=== PATIENT | male | born 1955 | race Caucasian/White ===

== ENCOUNTER 2023-12-01 03:03 | Inpatient (IN) ==
[2023-12-01] MEDS: KETOROLAC TROMETHAMINE 15 MG/ML VIAL IV ONE ×2 (03:31→08:49)
[2023-12-01] MEDS: ONDANSETRON INJ 2 MG/ML 2 ML VIAL IV STA (03:33)
[2023-12-01] MEDS: MoRPHine SULFATE 4 MG/ML 1 ML CARP\\VIAL IV PRN (03:34)
[2023-12-01 03:37] LABS: Basophils # (auto) 0.04 K/uL (0.00-0.20); Basophils % (auto) 0.5 %; Eosinophils # (auto) 0.07 K/uL (0.00-0.50); Eosinophils % (auto) 0.9 %; Hematocrit (blood only) 47.5 % (42.0-52.0); Hemoglobin 16.1 g/dl (14.0-18.0); Immature Granulocytes # (auto) 0.03 K/uL (0.01-0.20); Immature Granulocytes % (auto) 0.4 %; Lymphocytes # (auto) 2.42 K/uL (1.20-3.40); Lymphocytes % (auto) 30.6 %; Mean Corpuscular Hemoglobin 30.5 pg (25.0-34.0); Mean Corpuscular Hgb Conc 33.9 g/dL (32.0-36.0); Mean Platelet Volume 10.2 fL (9.4-12.4); Monocytes % (auto) 10.1 %; Neutrophils # (auto) 4.54 K/uL (1.40-6.50); Neutrophils % (auto) 57.5 %; Platelet Count 250 K/uL (130-400); RDW Standard Deviation 42.7 fL (36.4-46.3); Red Blood Count 5.28 M/uL (4.70-6.10)
[2023-12-01 03:56] LABS: Albumin Globulin Ratio 1.4 (0.9-2); Albumin Level 4.2 gm/dl (3.4-5.0); BUN Creatinine Ratio 23.7 (10-20); Bilirubin,Total 0.9 mg/dl (0.2-1.0); Calcium 9.7 mg/dl (8.6-10.3); Creatinine Clr Calc Pharmacy 69.9 ml/min; Est GFR (African American) 77.2 ml/min; Est GFR (Non-African American) 66.6 ml/min; Globulin 3.1 gm/dl (2.5-4.0); Potassium 4.3 mmol/L (3.5-5.1); Total Protein 7.3 gm/dl (6.0-8.3)
[2023-12-01 04:16] LABS: Appearance Urine Clear (Clear); Bilirubin Urine Negative (Negative); Blood Urine Negative (Negative); Color Urine Yellow; Glucose Urine UA Negative (Negative); Ketones Urine Negative (Negative); Leukocyte Esterase Urine Negative (Negative); Nitrite Urine Negative (Negative); Protein Urine Negative (Negative); Specific Gravity Urine 1.022 (1.000-1.030); Urobilinogen Urine Negative (Negative); pH Urine 5.5 (4.5-7.5)
--- NOTE | 2023-12-01 04:25 | Emergency Department Note ---
Impression & Plan Acute right flank pain, Ureterolithiasis ED Provider Note NAME: LILY RODGERS AGE: 68 SEX: Male INFORMANT: Patient ED PROVIDER(S): Pio Benavidez MD CHIEF COMPLAINT: Right flank pain PLAN: Disposition: Admitted Outpatient prescription management: none Referral: None MEDICAL DECISION MAKING: Patient presented because of acute right flank pain. He was evaluated. He was very uncomfortable. Blood work, imaging, and medications ordered. He was given IV Toradol, morphine, and Zofran for symptom control. Patient was sent to the CT imaging. Patient does have a right ureteral stone on imaging. Patient still symptomatic and with a lot of pain. Given dilaudid and monitored. Still without relief. Discussed need for admission and patient in agreement. Consultation was made with Dr. Escobedo of the [facility] service. Patient was evaluated in the ER for further management. Care/management discussed with: manager behavioral Level of care consideration(s): After review of the information above and other included data, I feel the patient requires escalation of care to admission. Triage Nursing notes: reviewed and agree them. Vital Signs: reviewed and remarkable for hypertension Additional History obtained from: none Chronic Medical/Social Conditions affecting care: none Prior/ Outside/ External records reviewed: Prior CT imaging reviewed from the EMR. Patient was noted to have bilateral nephrolithiasis. Differential Diagnosis: Renal colic, UTI, appendicitis, diverticulitis, mesenteric ischemia, aortic pathology, infections, inflammatory bowel disease, PUD, biliary pathology, as well as other pathologies. Diagnostics, independently interpreted by me: ECG: none Cardiac Monitoring: Cardiac monitoring ordered by me: The patient was placed on continuous cardiac monitoring and observed. It revealed a normal sinus rhythm at 62 beats per minute without ectopy or evidence of dysrhythmia. Medical decision rules: none Imaging studies: CT reveals right ureterolithiasis HPI: 68 year old Male arrives for evaluation of right flank pain. This started acutely at 1 AM and is sharp and severe. The patient also notes the following associated symptoms, nausea. The patient has found no relieving factors. Current pain is rated as 10/10. Pt denies LOC, headache, fevers, chills, diaphoresis, visual changes, neck pain, chest pain, breathing difficulties, vomiting, abdominal pain, melena, hematochezia, urinary symptoms, numbness, weakness, lymphadenopathy, rash, or other complaints. PAST MEDICAL HISTORY: See Below, kidney stone PAST SURGICAL HISTORY: See Below, SOCIAL HISTORY: See Below, HOME MEDICATIONS: See Below ALLERGIES: See Below VITALS: See Below PHYSICAL EXAMINATION: GENERAL: Awake, alert, uncomfortable-appearing, in no distress HENT: Normocephalic, atraumatic. Oropharynx unremarkable. EYES: Normal conjunctiva. Sclera non-icteric. NECK: Inspection normal. Non-tender. Supple. No nuchal rigidity. FROM. No masses. RESPIRATORY: Clear to auscultation. No wheezes. No rales. Normal respiratory effort. CARDIAC: Normal rate. Normal rhythm. No murmurs. No rubs. Extremities warm and well perfused. Pulses equal. No JVD. GI: Soft, non-distended. Mild left upper tenderness to palpation. No rebound or guarding. No masses. RECTAL: Deferred. MUSCULOSKELETAL: Atraumatic. Chest examination reveals no tenderness. The back is symmetrical on inspection without obvious abnormality. There is right CVA tenderness to palpation. No joint edema. LOWER EXTREMITIES: Calves are equal size bilaterally and non-tender. No edema. No discoloration. NEURO: Normal sensorium. No sensory or motor deficits noted. SKIN: No rash or jaundice noted. PROCEDURES: none CRITICAL CARE: none OBSERVATION NOTE: none Past Med/Surg History Problem List Hydronephrosis of right kidney Ureterolithiasis (Acute) Acute right flank pain (Acute) Medical History BPH (benign prostatic hyperplasia) HTN (hypertension) T2DM (type 2 diabetes mellitus) Kidney stone Surgical History Hx of tonsillectomy Family History Other Diabetes Stroke Social History (Updated 12/01/23 @ 09:08 by Idalia Linder PA-C) Smoking Status: Never smoker Do You Dip or Chew Tobacco: No; Hx Alcohol Use: No Hx Substance Use: No Preferred Language: Telugu Registered Occupational Therapist Required: No Beliefs That Will Affect Care: None marital status: Current Living Situation: Spouse Feels Safe at Home: Yes Assistive Devices: Glasses Allergies Allergies Allergy/AdvReac Type Severity Reaction Status Date / Time No Known Allergies Allergy Unverified 12/01/23 12:40 Home Meds Home Medications Medication Instructions Recorded Confirmed atorvastatin 20 mg tablet 10 mg PO DAILY 12/01/23 12/01/23 lisinopril 10 mg tablet 10 mg PO DAILY 12/01/23 12/01/23 psyllium husk 3.4 gram/5.4 gram 2 tsp PO TID 12/01/23 12/01/23 oral powder (Metamucil) semaglutide 0.25 mg or 0.5 mg (2 0.5 mg subcut Q7D 12/01/23 12/01/23 mg/3 mL) subcutaneous pen injector (Ozempic) Results & Data (ED) Vital Signs Vital Signs - 24 hr 12/01/23 03:06 12/01/23 03:23 12/01/23 04:12 Temperature 36.6 C Temperature Source Temporal Artery Scan Pulse Rate 62 60 Pulse Rate [Left] Pulse Rate from SpO2 Sensor Pulse Rhythm [Left] Pulse Strength [Left] Respiratory Rate 20 Respiratory Effort / Characteristics Respiratory Depth Respiratory Pattern Blood Pressure 180/105 H Blood Pressure [Right Arm] Blood Pressure Mean 130 Blood Pressure Mean [Right Arm] Blood Pressure Position [Right Arm] Pulse Oximetry 99 96 Oxygen Delivery Method Room Air Room Air Sepsis Recent Fever Within 48 Hours No Sepsis New/Unexplained Change in Mental Status N/A Sepsis Action Taken by Nursing No Action Required 12/01/23 04:15 12/01/23 05:00 12/01/23 05:00 Temperature Temperature Source Pulse Rate 68 58 L Pulse Rate [Left] Pulse Rate from SpO2 Sensor 68 60 Pulse Rhythm [Left] Pulse Strength [Left] Respiratory Rate 22 7 L Respiratory Effort / Characteristics Respiratory Depth Respiratory Pattern Blood Pressure 126/65 Blood Pressure [Right Arm] Blood Pressure Mean 92 Blood Pressure Mean [Right Arm] Blood Pressure Position [Right Arm] Pulse Oximetry 95 93 Oxygen Delivery Method Sepsis Recent Fever Within 48 Hours Sepsis New/Unexplained Change in Mental Status Sepsis Action Taken by Nursing 12/01/23 07:00 12/01/23 07:00 12/01/23 07:30 Temperature Temperature Source Pulse Rate 51 L 56 L Pulse Rate [Left] Pulse Rate from SpO2 Sensor 51 L 53 L Pulse Rhythm [Left] Pulse Strength [Left] Respiratory Rate 15 15 Respiratory Effort / Characteristics Respiratory Depth Respiratory Pattern Blood Pressure 131/72 Blood Pressure [Right Arm] Blood Pressure Mean 92 Blood Pressure Mean [Right Arm] Blood Pressure Position [Right Arm] Pulse Oximetry 95 93 Oxygen Delivery Method Sepsis Recent Fever Within 48 Hours Sepsis New/Unexplained Change in Mental Status Sepsis Action Taken by Nursing 12/01/23 07:30 12/01/23 07:32 12/01/23 08:00 Temperature Temperature Source Pulse Rate 51 L Pulse Rate [Left] 59 L Pulse Rate from SpO2 Sensor 51 L Pulse Rhythm [Left] Regular Pulse Strength [Left] Normal Respiratory Rate 17 12 Respiratory Effort / Characteristics Non-Labored Respiratory Depth Normal Respiratory Pattern Regular Blood Pressure 140/79 Blood Pressure [Right Arm] 140/79 Blood Pressure Mean 103 Blood Pressure Mean [Right Arm] 99 Blood Pressure Position [Right Arm] Sitting Pulse Oximetry 97 93 Oxygen Delivery Method Room Air Sepsis Recent Fever Within 48 Hours Sepsis New/Unexplained Change in Mental Status Sepsis Action Taken by Nursing 12/01/23 08:00 Temperature Temperature Source Pulse Rate Pulse Rate [Left] Pulse Rate from SpO2 Sensor Pulse Rhythm [Left] Pulse Strength [Left] Respiratory Rate Respiratory Effort / Characteristics Respiratory Depth Respiratory Pattern Blood Pressure 144/83 H Blood Pressure [Right Arm] Blood Pressure Mean 98 Blood Pressure Mean [Right Arm] Blood Pressure Position [Right Arm] Pulse Oximetry Oxygen Delivery Method Sepsis Recent Fever Within 48 Hours Sepsis New/Unexplained Change in Mental Status Sepsis Action Taken by Nursing Laboratory Data 12/01/23 03:20 12/01/23 03:20 Lab Results 12/01/23 12/01/23 Range/Units 03:20 03:35 WBC 7.90 (4.8-10.8) K/ul RBC 5.28 (4.70-6.10) M/uL Hgb 16.1 (14.0-18.0) g/dl Hct 47.5 (42.0-52.0) % MCV 90.0 (80.0-100.0) fL MCH 30.5 (25.0-34.0) pg MCHC 33.9 (32.0-36.0) g/dL RDW Std Deviation 42.7 (36.4-46.3) fL RDW Coeff of [place] 13.0 (11.5-14.5) % Plt Count 250 (130-400) K/uL MPV 10.2 (9.4-12.4) fL Immature Gran % (Auto) 0.4 % Neut % (Auto) 57.5 % Lymph % (Auto) 30.6 % [place] % (Auto) 10.1 % Eos % (Auto) 0.9 % Baso % (Auto) 0.5 % Neut # (Auto) 4.54 (1.40-6.50) K/uL Lymph # (Auto) 2.42 (1.20-3.40) K/uL [place] # (Auto) 0.80 H (0.11-0.59) K/uL Eos # (Auto) 0.07 (0.00-0.50) K/uL Baso # (Auto) 0.04 (0.00-0.20) K/uL Immature Gran # (Auto) 0.03 (0.01-0.20) K/uL Sodium 136 (136-145) mmol/L Potassium 4.3 (3.5-5.1) mmol/L Chloride 104 (98-107) mmol/L Carbon Dioxide 25 (21-32) mmol/L Anion Gap 7 (3-11) BUN 27 H (6-23) mg/dl Creatinine 1.14 (0.6-1.4) mg/dl Est Cr Clr Drug Dosing 69.9 ml/min Est GFR ( Amer) 77.2 ml/min Est GFR (Non-Af Amer) 66.6 ml/min BUN/Creatinine Ratio 23.7 H (10-20) Glucose 119 H (70-99(Fasting)) mg/dl Calcium 9.7 (8.6-10.3) mg/dl Total Bilirubin 0.9 (0.2-1.0) mg/dl AST 19 (13-39) U/L ALT 19 (7-52) U/L Alkaline Phosphatase 54 (34-104) U/L Total Protein 7.3 (6.0-8.3) gm/dl Albumin 4.2 (3.4-5.0) gm/dl Globulin 3.1 (2.5-4.0) gm/dl Albumin/Globulin Ratio 1.4 (0.9-2) Lipase 16 (11-82) U/L Urine Color Yellow Urine Appearance Clear (Clear) Urine pH 5.5 (4.5-7.5) Ur Specific [place] 1.022 (1.000-1.030) Urine Protein Negative (Negative) Urine Glucose (UA) Negative (Negative) Urine Ketones Negative (Negative) Urine Blood Negative (Negative) Urine Nitrite Negative (Negative) Urine Bilirubin Negative (Negative) Urine Urobilinogen Negative (Negative) Ur Leukocyte Esterase Negative (Negative) Administered Medications Acetaminophen (Acetaminophen 325 Mg Tab) 650 mg PO Q4H PRN PRN Reason: pain/fever Stop: 12/31/23 10:18 Last Admin: 12/01/23 18:11 Dose: 650 mg Documented By: EDIN Sodium Chloride (Nss) 1,000 mls @ 75 mls/hr IV .[id number] [facility] Stop: 12/31/23 08:14 Last Admin: 12/01/23 15:56 Dose: 150 mls/hr Documented By: Infusion: 12/01/23 15:49 Dose: Infused Documented By: Admin: 12/01/23 08:40 Dose: 150 mls/hr Documented By: LAZARO Oxycodone HCl (Oxycodone Hcl Ir 5 Mg Tab (Immediate Release)) 5 mg PO Q3H PRN PRN Reason: Pain, moderate Stop: 12/15/23 16:14 Last Admin: 12/01/23 18:08 Dose: 5 mg Documented By: EDIN Psyllium Hydrophilic Mucilloid (Psyllium Or Guar Gum Fiber 4gm Packet) 8 gm PO TID [facility] Stop: 12/31/23 13:59 Last Admin: 12/01/23 17:21 Dose: Not Given Documented By: EDIN Discontinued Medications Diatrizoate Meglumine (Diatrizoate Meglumine 30% 100ml Vial) 100 ml INSTIL ONCE ONE Stop: 12/01/23 13:26 Last Admin: 12/01/23 13:26 Dose: 7 ml Documented By: [id number] Fentanyl Citrate (Fentanyl Citrate Pf 100 Mcg/2 Ml Vial) 25 mcg IV NOW ONE Stop: 12/01/23 09:31 Last Admin: 12/01/23 16:16 Dose: Not Given Documented By: EDIN Hydromorphone HCl (Hydromorphone Inj 0.5 Mg/0.5 Ml Syr) 0.5 mg IV NOW STA Stop: 12/01/23 07:26 Last Admin: 12/01/23 07:33 Dose: 0.5 mg Documented By: NAHUM Cefazolin Sodium (Ancef 2000mg) 2,000 mg in 15 mls @ 3.75 mls/min IV PREOP HIRAM; Protocol Stop: 12/01/23 16:00 Last Admin: 12/01/23 13:05 Dose: 3.75 mls/min Documented By: NORAH Ketorolac Tromethamine (Ketorolac Tromethamine 15 Mg/Ml Vial) 10 mg IV NOW ONE Stop: 12/01/23 03:28 Last Admin: 12/01/23 03:31 Dose: 10 mg Documented By: JOHN Ketorolac Tromethamine (Ketorolac Tromethamine 15 Mg/Ml Vial) 15 mg IV NOW ONE Stop: 12/01/23 08:36 Last Admin: 12/01/23 08:49 Dose: 15 mg Documented By: LAZARO Morphine Sulfate (Morphine Sulfate 4 Mg/Ml 1 Ml [place]\Vial) 4 mg IV Q15M PRN PRN Reason: Pain Stop: 12/15/23 03:26 Last Admin: 12/01/23 05:03 Dose: 4 mg Documented By: Admin: 12/01/23 04:07 Dose: 4 mg Documented By: Admin: 12/01/23 03:34 Dose: 4 mg Documented By: JOHN Ondansetron HCl (Ondansetron Inj 2 Mg/Ml 2 Ml Vial) 4 mg IV NOW STA Stop: 12/01/23 03:28 Last Admin: 12/01/23 03:33 Dose: 4 mg Documented By: JOHN Imaging Data Radiologist's Impression: Retrograde Pyelogram 12/01/23 00:00 FL retrograde includes kub CLINICAL HISTORY: RT CYSTO STENTright-sided cystourethrogram COMPARISON STUDY: CT 12/01/2023 FLUOROSCOPY TIME: 12.3 seconds FLUOROSCOPY IMAGES: 1 EXPOSURE DOSE: 3.57 mGy FINDINGS: Proximal portion of a right ureteral stent appears to be in satisfactory positioning. The distal portion of the stent was not imaged. IMPRESSION: Fluoroscopic assistance as above. ACT 112: Negative or not required by law. Electronically signed by: Avtar Wilkins M.D. 12/01/2023 1:40 PM Abdomen/Pelvis CT 12/01/23 03:23 Exam(s): CT ABDOMEN + PELVIS Without Contrast EXAM: CT Abdomen and Pelvis Without Intravenous Contrast CLINICAL HISTORY: Reason for exam: right flank pain. TECHNIQUE: Axial computed tomography images of the abdomen and pelvis without intravenous contrast. CTDI is 24.36 mGy and DLP is 1255.37 mGy-cm. Automated exposure control was utilized for the study. A dose lowering technique was utilized adhering to the principles of ALARA. COMPARISON: No relevant prior studies available. FINDINGS: Lung bases: Unremarkable. No mass. No consolidation. ABDOMEN: Liver: There is right hepatic cyst measuring 5.8 cm in diameter. Gallbladder and bile ducts: Unremarkable. No calcified stones. No ductal dilation. Pancreas: Unremarkable. No ductal dilation. Spleen: Unremarkable. No splenomegaly. Adrenals: Unremarkable. No mass. Kidneys and ureters: There is right-sided hydroureteronephrosis due to the presence of a right distal ureteric calculus measuring 4.5 mm in diameter. There are bilateral renal stones identified, the largest 1 of which is located on the left side and measures 6 mm in diameter. 3 cm left renal cortical cyst is seen. Stomach and bowel: Sigmoid colonic diverticulosis. No obstruction. No mucosal thickening. PELVIS: Appendix: Normal appendix located in the midline. Bladder: Unremarkable. No stones. Reproductive: Unremarkable as visualized. ABDOMEN and PELVIS: Intraperitoneal space: Unremarkable. No free air. No significant fluid collection. Bones/joints: No acute fracture. No dislocation. Moderately advanced multilevel degenerative disc disease changes seen in the lumbar spine. Posterior disc osteophyte complex seen at L1/2, L2/3 and L3/4 junction. Vasculature: Unremarkable. No abdominal aortic aneurysm. Lymph nodes: Unremarkable. No enlarged lymph nodes. IMPRESSION: Right hydroureteronephrosis due to 4.5 mm right distal ureteric calculus Electronically signed by: David Aguilar MD 12/01/23 06:59 AM Discharge Plan Visit Data Chief Complaint: Kidney Stone Stated Complaint: KIDNEY STONE ED Provider: Pio Benavidez Discharge Problem: Acute right flank pain, Ureterolithiasis Patient Disposition: Admitted As Inpatient Discharge Instructions Interventions: ED Discharge Assessment Last Done: 12/01/23 12:15
--- NOTE | 2023-12-01 07:00 | CT Scan Report ---
Exam(s): CT ABDOMEN + PELVIS Without Contrast EXAM: CT Abdomen and Pelvis Without Intravenous Contrast CLINICAL HISTORY: Reason for exam: right flank pain. TECHNIQUE: Axial computed tomography images of the abdomen and pelvis without intravenous contrast. CTDI is 24.36 mGy and DLP is 1255.37 mGy-cm. Automated exposure control was utilized for the study. A dose lowering technique was utilized adhering to the principles of ALARA. COMPARISON: No relevant prior studies available. FINDINGS: Lung bases: Unremarkable. No mass. No consolidation. ABDOMEN: Liver: There is right hepatic cyst measuring 5.8 cm in diameter. Gallbladder and bile ducts: Unremarkable. No calcified stones. No ductal dilation. Pancreas: Unremarkable. No ductal dilation. Spleen: Unremarkable. No splenomegaly. Adrenals: Unremarkable. No mass. Kidneys and ureters: There is right-sided hydroureteronephrosis due to the presence of a right distal ureteric calculus measuring 4.5 mm in diameter. There are bilateral renal stones identified, the largest 1 of which is located on the left side and measures 6 mm in diameter. 3 cm left renal cortical cyst is seen. Stomach and bowel: Sigmoid colonic diverticulosis. No obstruction. No mucosal thickening. PELVIS: Appendix: Normal appendix located in the midline. Bladder: Unremarkable. No stones. Reproductive: Unremarkable as visualized. ABDOMEN and PELVIS: Intraperitoneal space: Unremarkable. No free air. No significant fluid collection. Bones/joints: No acute fracture. No dislocation. Moderately advanced multilevel degenerative disc disease changes seen in the lumbar spine. Posterior disc osteophyte complex seen at L1/2, L2/3 and L3/4 junction. Vasculature: Unremarkable. No abdominal aortic aneurysm. Lymph nodes: Unremarkable. No enlarged lymph nodes. IMPRESSION: Right hydroureteronephrosis due to 4.5 mm right distal ureteric calculus Electronically signed by: David Aguilar MD 12/01/23 06:59 AM
[2023-12-01] MEDS: HYDROmorphone INJ 0.5 MG/0.5 ML SYR IV STA (07:33)
[2023-12-01] MEDS ORDERED: HYDROmorphone INJ 0.5 MG/0.5 ML SYR IV PRN ×2 (07:58→10:19)
[2023-12-01] MEDS: SODIUM CHLORIDE 0.9% 1,000 ML IV SCH (08:40)
--- NOTE | 2023-12-01 09:16 | History & Physical Report ---
<Statement entered by Smith Ritchie, DO - 12/01/23 16:18> I have seen and examined the patient and have discussed the case with the provider above. I have reviewed the advanced practitioner's documentation, and I agree with, and take responsibility for that plan of care. Spent 15 minutes in coordination of care Patient seen and examined on the unit after he had returned from the operating room. Status post cystoscopy with right ureteral stent placement. Pain is significantly improved. Tolerated procedure well. Decrease IV fluids Oral pain medications Advance diet Anticipate discharge within 24 hours Date of Service December 01, 2023 Assessment & Plan (1) Acute right flank pain: (2) Ureterolithiasis: (3) Hydronephrosis of right kidney: (4) T2DM (type 2 diabetes mellitus): (5) HTN (hypertension): Plan This is a 68-year-old male who has a significant past medical history of T2DM, HTN and BPH who presents to ED secondary to acute onset right-sided flank pain that started at 1 AM. Acute right flank pain Ureterolithiasis Hydronephrosis of right kidney Admit to medical -- CT abdomen pelvis reveal right hydroureteronephrosis due to a 4.5 mm right distal ureter calculus Urinalysis benign, renal function stable Consult urology IVF at 150 cc/h Pain control with IV Toradol for moderate pain, IV Dilaudid for severe pain keep NPO until seen by urology T2DM on ozempic last a1c 5.8 previously had been 7.5 diabetic diet when able to tolerate PO HTN controlled continue lisinopril HLD chronic, stable on statin at OP DVT ppx: Encourage ambulation, if prolonged hospitalization would recommend chemical prophylaxis FULL CODE PCP: Dr. Carey Dispo: admit to med/surg Pt was seen and examined in collaboration with Dr. Ritchie, please see addendum A total of 65 minutes was spent coordinating, documenting, and providing care for this patient excluding time spent in the performance of separately billed services. This included personally viewing all current laboratories and imaging studies, medication reconciliation, outpatient chart review, and discussion with specialists. History of Present Illness Chief Complaint: R flank pain since 0100. Primary Care Provider: Keith Carey MD This is a 68-year-old male who has a significant past medical history of T2DM, HTN and BPH who presents to ED secondary to acute onset right-sided flank pain that started at 1 AM. Pain came on abruptly. It was located in his right flank and right lower back. Symptoms did not radiate to his anterior abdomen. It was associated with nausea. Nothing seem to make the pain better or worse. He denied any associated fever, chills, sweats, vomiting, dysuria, increased urgency with urination or hematuria. He does report increased frequency with urination, but this is chronic for him. His is at bedside who also helps elicit history. He does report that he has an appointment with [facility] urology but is not until April. He reports a history of kidney stones in which he thinks he passed 1 approximately 3 months ago. He had a renal and bladder ultrasound done as outpatient in September which did reveal bilateral nephrolithiasis. He has never required ED evaluation or hospitalization for prior stones. In ED CT abdomen pelvis revealed a 4.5 mm right distal ureter stone with hydroureteronephrosis. His urinalysis was negative for infection. His renal function was stable. He complains of significant pain. Currently he is an 8 out of 10 pain. Discussed with nurse at bedside and pt did become hypoxic after administration of IV dilaudid. Allergies Allergy/AdvReac Type Severity Reaction Status Date / Time No Known Allergies Allergy Unverified 12/01/23 07:37 Home Medications Medication Instructions Recorded Confirmed Type atorvastatin 20 mg tablet 10 mg PO DAILY 12/01/23 12/01/23 History lisinopril 10 mg tablet 10 mg PO DAILY 12/01/23 12/01/23 History psyllium husk 3.4 gram/5.4 gram 2 tsp PO TID 12/01/23 12/01/23 History oral powder (Metamucil) semaglutide 0.25 mg or 0.5 mg (2 0.5 mg subcut Q7D 12/01/23 12/01/23 History mg/3 mL) subcutaneous pen injector (Ozempic) Past Med/Surg History Problem List (Updated 12/01/23 @ 09:10 by Idalia Linder PA-C) Hydronephrosis of right kidney Ureterolithiasis (Acute) Acute right flank pain (Acute) Medical History BPH (benign prostatic hyperplasia) HTN (hypertension) T2DM (type 2 diabetes mellitus) Kidney stone Surgical History Hx of tonsillectomy Family History Other Diabetes Stroke Social History (Updated 12/01/23 @ 09:08 by Idalia Linder PA-C) Smoking Status: Never smoker Hx Alcohol Use: No Hx Substance Use: No Preferred Language: Korean marital status: Current Living Situation: Spouse Feels Safe at Home: Yes Review of Systems Review of Systems: All systems reviewed & are unremarkable except as noted in HPI & below Physical Exam Physical Exam: Constitutional: WD/WN, vitals as above, appears in pain, sitting up in bed, pleasant, conversing easily Head: Normocephalic, Atraumatic Eyes: PERRL, conjunctivae normal, anicteric sclerae ENMT: external ear and nose normal, oropharynx normal Neck: trachea midline, no thyromegaly normal visual inspection Respiratory: normal respiratory effort, lungs clear to auscultation, no wheeze, rales, rhonchi. Normal insp/exp effort, no accessory muscle use Cardiovascular: RRR, no murmur, no edema Vessels: no JVD or carotid bruit Chest: normal inspection of chest Abdomen: normal bowel sounds, soft, nontender, no hepatosplenomegaly Musculoskeletal: no cyanosis or clubbing, extremities motor strength 5/5 Skin: no rashes, warm and dry normal turgor Neurologic: PERRL, EOMI, accommodation nl, no face palsy, no dysarthria CN's II-XI intact bilaterally and moves all extremities Psychiatric: A+Ox3, euthymic affect Lymphatic: no cervical or axillary lymphadenopathy : deferred Results & Data Results & Data Vital Signs (Past 12 Hours) Vital Signs Temp Pulse Pulse Resp BP BP Pulse Ox 12/01/23 08:25 50 L 12/01/23 08:00 144/83 H 12/01/23 08:00 51 L 12 93 12/01/23 07:32 59 L 17 140/79 97 12/01/23 07:30 140/79 12/01/23 07:30 56 L 15 93 12/01/23 07:00 51 L 15 95 12/01/23 07:00 131/72 12/01/23 05:00 58 L 7 L 93 12/01/23 05:00 126/65 12/01/23 04:15 68 22 95 12/01/23 04:12 60 12/01/23 03:23 96 12/01/23 03:06 36.6 C 62 20 180/105 H 99 O2 Del Method 12/01/23 08:25 12/01/23 08:00 12/01/23 08:00 12/01/23 07:32 Room Air 12/01/23 07:30 12/01/23 07:30 12/01/23 07:00 12/01/23 07:00 12/01/23 05:00 12/01/23 05:00 12/01/23 04:15 12/01/23 04:12 12/01/23 03:23 Room Air 12/01/23 03:06 Room Air Diagnostic Findings Abdomen/Pelvis CT 12/01/23 03:23 Exam(s): CT ABDOMEN + PELVIS Without Contrast EXAM: CT Abdomen and Pelvis Without Intravenous Contrast CLINICAL HISTORY: Reason for exam: right flank pain. TECHNIQUE: Axial computed tomography images of the abdomen and pelvis without intravenous contrast. CTDI is 24.36 mGy and DLP is 1255.37 mGy-cm. Automated exposure control was utilized for the study. A dose lowering technique was utilized adhering to the principles of ALARA. COMPARISON: No relevant prior studies available. FINDINGS: Lung bases: Unremarkable. No mass. No consolidation. ABDOMEN: Liver: There is right hepatic cyst measuring 5.8 cm in diameter. Gallbladder and bile ducts: Unremarkable. No calcified stones. No ductal dilation. Pancreas: Unremarkable. No ductal dilation. Spleen: Unremarkable. No splenomegaly. Adrenals: Unremarkable. No mass. Kidneys and ureters: There is right-sided hydroureteronephrosis due to the presence of a right distal ureteric calculus measuring 4.5 mm in diameter. There are bilateral renal stones identified, the largest 1 of which is located on the left side and measures 6 mm in diameter. 3 cm left renal cortical cyst is seen. Stomach and bowel: Sigmoid colonic diverticulosis. No obstruction. No mucosal thickening. PELVIS: Appendix: Normal appendix located in the midline. Bladder: Unremarkable. No stones. Reproductive: Unremarkable as visualized. ABDOMEN and PELVIS: Intraperitoneal space: Unremarkable. No free air. No significant fluid collection. Bones/joints: No acute fracture. No dislocation. Moderately advanced multilevel degenerative disc disease changes seen in the lumbar spine. Posterior disc osteophyte complex seen at L1/2, L2/3 and L3/4 junction. Vasculature: Unremarkable. No abdominal aortic aneurysm. Lymph nodes: Unremarkable. No enlarged lymph nodes. IMPRESSION: Right hydroureteronephrosis due to 4.5 mm right distal ureteric calculus Electronically signed by: David Aguilar MD 12/01/23 06:59 AM Medications Administered Medication List Sodium Chloride (Nss) 1,000 mls @ 150 mls/hr IV .Q6H40M HIRAM Stop: 12/31/23 08:14 Last Admin: 12/01/23 08:40 Dose: 150 mls/hr Documented By: LAZARO Morphine Sulfate (Morphine Sulfate 4 Mg/Ml 1 Ml Carp\Vial) 4 mg IV Q15M PRN PRN Reason: Pain Stop: 12/15/23 03:26 Last Admin: 12/01/23 05:03 Dose: 4 mg Documented By: Admin: 12/01/23 04:07 Dose: 4 mg Documented By: Admin: 12/01/23 03:34 Dose: 4 mg Documented By: JOHN Discontinued Medications Hydromorphone HCl (Hydromorphone Inj 0.5 Mg/0.5 Ml Syr) 0.5 mg IV NOW STA Stop: 12/01/23 07:26 Last Admin: 12/01/23 07:33 Dose: 0.5 mg Documented By: NAHUM Ketorolac Tromethamine (Ketorolac Tromethamine 15 Mg/Ml Vial) 10 mg IV NOW ONE Stop: 12/01/23 03:28 Last Admin: 12/01/23 03:31 Dose: 10 mg Documented By: JOHN Ketorolac Tromethamine (Ketorolac Tromethamine 15 Mg/Ml Vial) 15 mg IV NOW ONE Stop: 12/01/23 08:36 Last Admin: 12/01/23 08:49 Dose: 15 mg Documented By: LAZARO Ondansetron HCl (Ondansetron Inj 2 Mg/Ml 2 Ml Vial) 4 mg IV NOW STA Stop: 12/01/23 03:28 Last Admin: 12/01/23 03:33 Dose: 4 mg Documented By: JOHN COVID-19 Results Results COVID-19 Adm Lab Results: RBC 5.28 M/uL (4.70-6.10) 12/01/23 WBC 7.90 K/ul (4.8-10.8) 12/01/23 Hgb 16.1 g/dl (14.0-18.0) 12/01/23 Hct 47.5 % (42.0-52.0) 12/01/23 Plt Count 250 K/uL (130-400) 12/01/23 Neutrophils (%) (Auto) 57.5 % 12/01/23 Lymphocytes (%) (Auto) 30.6 % 12/01/23 Monocytes # (Auto) 0.80 K/uL (0.11-0.59) H 12/01/23 Eosinophils # (Auto) 0.07 K/uL (0.00-0.50) 12/01/23 Immature Granulocyte % (Auto) 0.4 % 12/01/23 Neutrophils # (Auto) 4.54 K/uL (1.40-6.50) 12/01/23 Lymphocytes # (Auto) 2.42 K/uL (1.20-3.40) 12/01/23 Monocytes # (Auto) 0.80 K/uL (0.11-0.59) H 12/01/23 Eosinophils # (Auto) 0.07 K/uL (0.00-0.50) 12/01/23 Basophils # (Auto) 0.04 K/uL (0.00-0.20) 12/01/23 Na 136 mmol/L (136-145) 12/01/23 K 4.3 mmol/L (3.5-5.1) 12/01/23 Cl 104 mmol/L (98-107) 12/01/23 CO2 25 mmol/L (21-32) 12/01/23 Anion Gap 7 (3-11) 12/01/23 BUN 27 mg/dl (6-23) H 12/01/23 Creatinine 1.14 mg/dl (0.6-1.4) 12/01/23 BUN/Creatinine Ratio 23.7 (10-20) H 12/01/23 Glucose Level 119 mg/dl (70-99(Fasting)) H 12/01/23 Ca 9.7 mg/dl (8.6-10.3) 12/01/23 Total Bilirubin 0.9 mg/dl (0.2-1.0) 12/01/23 AST/SGOT 19 U/L (13-39) 12/01/23 ALT/SGPT 19 U/L (7-52) 12/01/23 Alkaline Phosphatase 54 U/L (34-104) 12/01/23 Total Protein 7.3 gm/dl (6.0-8.3) 12/01/23 Albumin 4.2 gm/dl (3.4-5.0) 12/01/23 Globulin 3.1 gm/dl (2.5-4.0) 12/01/23 Albumin/Globulin Ratio 1.4 (0.9-2) 12/01/23 Code Status & VTE Plan Code Status FULL CODE VTE Prophylaxis Plan VTE Prophylaxis will be ordered: No
[2023-12-01] MEDS ORDERED: ONDANSETRON INJ 2 MG/ML 2 ML VIAL IV PRN ×2 (10:19→12:54)
[2023-12-01] MEDS ORDERED: POLYETHYLENE (MIRALAX) 17 GM PACK PO PRN (10:19)
[2023-12-01] MEDS ORDERED: MAGNESIUM HYDROXIDE SUSP 30 ML UDC PO PRN (10:19)
[2023-12-01] MEDS ORDERED: ALUMINUM/MAGNESIUM SUSP 30 ML UDC PO PRN (10:19)
--- NOTE | 2023-12-01 11:30 | Urology Consultation ---
Date of Consultation December 01, 2023 Assessment & Plan (1) Hydronephrosis of right kidney: (2) Ureterolithiasis: (3) Acute right flank pain: Plan We reviewed his CT findings, specifically the 4.5 mm obstructing distal right ureteral stone. We discussed options for acute stone management. Discussed cystoscopy and stent placement. Ureteral stents were discussed as well as postoperative issues and pain management. He is aware a second procedure may be needed for stone treatment. Also discussed option for trial of passage with max expulsion therapy and symptom control. Stone passage rates given size and location were reviewed. Risks and benefits of each were discussed. All questions were answered. Given his severe right flank pain, patient prefers to proceed with stent placement. Will plan to proceed to OR today for cystoscopy, right retrograde pyelogram, right ureteral stent placement. Risks and benefits to be reviewed with patient by Dr. Skinner. OR notified. Will cover with IV Ancef preoperatively. Keep NPO. Urology to follow. Supervising Physician Co-Signing Physician Notes I have discussed Mr. De Los Santos's case with TAMELA Samuels and agree with the above documentation. Due to ongoing right-sided flank pain from his ureteral stone, we will plan for cystoscopy, right retrograde pyelogram, right ureteral stent placement. We reviewed risks and benefits of the surgery. He expressed understanding and would like to proceed -Solitario Skinner MD. History of Present Illness Attending Physician: Smith Ritchie DO History of Present Illness 68 year old male with a PMHx including T2DM, HTN and BPH who presented to ED secondary to acute onset right-sided flank pain with associated nausea. On arrival he was afebrile and hemodynamically stable. Labs show no leukocytosis and normal renal function. Urinalysis without signs of infection or blood. CT abdomen pelvis demonstrated a 4.5 mm right distal ureteral stone with hydronephrosis. ED course includes ketorolac, Dilaudid, morphine, IVF, Zofran, fentanyl. Patient did become hypoxic after administration of IV Dilaudid. He was admitted to medicine service for pain management. Patient seen at bedside in the ED. Awake, resting in bed on arrival. No acute distress. at bedside. He reports having a spoonful of peanut butter around 2 AM but otherwise nothing to eat or drink. Pain is currently well- controlled. Denies fever, chills, nausea, vomiting. Denies hematuria and dysu angel. He reports a history of kidney stones with spontaneous passage. He does not currently follow with a urologist but is scheduled to see [facility] urology this fall. Allergies Allergy/AdvReac Type Severity Reaction Status Date / Time No Known Allergies Allergy Unverified 12/01/23 12:40 Home Medications Medication Instructions Recorded Confirmed Type atorvastatin 20 mg tablet 10 mg PO DAILY 12/01/23 12/01/23 History lisinopril 10 mg tablet 10 mg PO DAILY 12/01/23 12/01/23 History psyllium husk 3.4 gram/5.4 gram 2 tsp PO TID 12/01/23 12/01/23 History oral powder (Metamucil) semaglutide 0.25 mg or 0.5 mg (2 0.5 mg subcut Q7D 12/01/23 12/01/23 History mg/3 mL) subcutaneous pen injector (Ozempic) Patient History Medical History BPH (benign prostatic hyperplasia) HTN (hypertension) T2DM (type 2 diabetes mellitus) Kidney stone Surgical History Hx of tonsillectomy Family History Other Diabetes Stroke Social History (Updated 12/01/23 @ 09:08 by Idalia Linder PA-C) Smoking Status: Never smoker Hx Alcohol Use: No Hx Substance Use: No Preferred Language: Singaporean marital status: Current Living Situation: Spouse Feels Safe at Home: Yes Review of Systems Review of Systems: All systems reviewed & are unremarkable except as noted in HPI & below Physical Exam Constitutional: no acute distress Respiratory: no respiratory distress and no labored breathing Musculoskeletal: Head/Neck/Chest: normocephalic Skin: No visible rashes or lesions to exposed skin areas Neurologic: moves all extremities and awake Psychiatric: A+Ox3, euthymic affect Results & Data Vital Signs (Past 12 Hours) Vital Signs Temp Pulse Pulse Resp BP BP Pulse Ox 12/01/23 10:06 20 97 12/01/23 09:15 20 96 12/01/23 09:00 58 L 20 147/80 H 95 12/01/23 08:25 50 L 12/01/23 08:00 144/83 H 12/01/23 08:00 51 L 12 93 12/01/23 07:32 59 L 17 140/79 97 12/01/23 07:30 140/79 12/01/23 07:30 56 L 15 93 12/01/23 07:00 51 L 15 95 12/01/23 07:00 131/72 12/01/23 05:00 58 L 7 L 93 12/01/23 05:00 126/65 12/01/23 04:15 68 22 95 12/01/23 04:12 60 12/01/23 03:23 96 12/01/23 03:06 36.6 C 62 20 180/105 H 99 O2 Del Method O2 Flow Rate 12/01/23 10:06 12/01/23 09:15 12/01/23 09:00 Nasal Cannula 1 12/01/23 08:25 12/01/23 08:00 12/01/23 08:00 12/01/23 07:32 Room Air 12/01/23 07:30 12/01/23 07:30 12/01/23 07:00 12/01/23 07:00 12/01/23 05:00 12/01/23 05:00 12/01/23 04:15 12/01/23 04:12 12/01/23 03:23 Room Air 12/01/23 03:06 Room Air PG Care Time/CCT Total # of Minutes Spent Total Time Spent with Patient: Total time spent is greater than 50% in coordination of care (as documented) at patient's floor/unit and/or counseling patient: Coding Level of Care Code 57161 INT INP/OBS CARE 2/55MIN Diagnoses Hydronephrosis of right kidney N13.30 Ureterolithiasis N20.1 Acute right flank pain R10.9
[2023-12-01] MEDS ORDERED: fentaNYL citrate PF 100 MCG/2 ML VIAL ONE (12:18)
[2023-12-01] MEDS ORDERED: MIDAZOLAM HCL 1 MG/ML 2ML VIAL ONE (12:18)
[2023-12-01] MEDS ORDERED: ONDANSETRON INJ 2 MG/ML 2 ML VIAL ONE (12:23)
[2023-12-01] MEDS ORDERED: KETOROLAC 30 MG/ML VIAL ONE (12:23)
[2023-12-01] MEDS ORDERED: PROPOFOL IV EMULSION 10 MG/ML 20 ML VIAL IV ONE (12:23)
[2023-12-01] MEDS ORDERED: LIDOCAINE 2% 2 ML VIAL/AMP(20MG/ML) INFIL ONE (12:23)
--- NOTE | 2023-12-01 12:53 | Anesthesiology Consultation ---
Date of Service December 01, 2023 Assessment & Plan Chart Review Chart Review: Acceptable Risk for Surgery and Patient NOT seen in Pre Admission Testing Consults Requested none ASA [id number] Proposed Anesthesia Anesthesia Type: MAC Risk / Benefits Reviewed With: PT / POA / Parent / Guardian, Accepts Plan and Informed Consent Obtained History Surgery Operation Date: 12/01/23 09:50 Proposed Procedures p Cystoscopy Retrograde Pyelogram Stent Right - Solitario Skinner MD Height/Weight Height: 5 ft 7 in Weight: 94.8 kg Allergies Allergy/AdvReac Type Severity Reaction Status Date / Time No Known Allergies Allergy Unverified 12/01/23 12:40 Medications Home Medications Medication Instructions Recorded Confirmed Last Taken atorvastatin 20 mg tablet 10 mg PO DAILY 12/01/23 12/01/23 Unknown lisinopril 10 mg tablet 10 mg PO DAILY 12/01/23 12/01/23 Unknown psyllium husk 3.4 gram/5.4 gram 2 tsp PO TID 12/01/23 12/01/23 Unknown oral powder (Metamucil) semaglutide 0.25 mg or 0.5 mg (2 0.5 mg subcut Q7D 12/01/23 12/01/23 Unknown mg/3 mL) subcutaneous pen injector (Ozempic) Active Medications Generic Name Dose Route Start Last Admin Trade Name Freq PRN Reason Stop Dose Admin Sodium Chloride 1,000 mls @ 150 mls/hr 12/01/23 08:15 12/01/23 08:40 Nss IV 12/31/23 08:14 150 mls/hr .Q6H40M HIRAM Administration NPO Date Last Intake of Fluids: 12/01/23 Time Last Intake of Fluids: 08:45 Last Intake of Fluids Comment: sip water Date Last Intake of Solids: 12/01/23 Time Last Intake of Solids: 01:00 Past Medical History Medical History BPH (benign prostatic hyperplasia) HTN (hypertension) T2DM (type 2 diabetes mellitus) Kidney stone HLD OBESE Right Hydronephrosis Exercise / Class Metabolic Activity II 4-5 Yardwork/Stairs/Walk up hill Past Family History Family History Other Diabetes Stroke Past Surgical History Surgical History Hx of tonsillectomy Past Anesthesia History No Hx of Anesthesia Complications and No Family Hx of Anesthesia Complications History of PONV No Hx of PONV and No Hx of Motion Sickness Social History Smoking Status: Never smoker Hx Alcohol Use: No Hx Substance Use: No Physical Exam Vital Signs Last Vital Signs Temp 36.6 C 12/01/23 03:06 Pulse 50 L 12/01/23 12:00 Resp 12 12/01/23 12:00 BP 131/80 12/01/23 12:00 Pulse Ox 94 12/01/23 12:00 O2 Del Method Nasal Cannula 12/01/23 09:00 O2 Flow Rate 1 12/01/23 09:00 Constitutional + obese; no acute distress ENMT Mouth: + dentition abnormality and + poor dentition Thyromental Distance: < 3.5 Finger Breadths Mallampati Class: III Neck normal visual inspection, trachea midline and + facial hair; neck extension not limited Respiratory normal respiratory effort Auscultation: lungs clear to auscultation bilaterally and + diminished lung sounds Cardiovascular Rate/Rhythm: regular rate and regular rhythm Heart Sounds: no murmur Vessels: no carotid bruit Musculoskeletal Spine: normal cervical ROM and no pain with cervical ROM Extremities: extremities normal to inspection; full ROM of extremities Neurologic moves all extremities Motor/Sensory: no sensory deficit Psychiatric Orientation: alert and oriented x 3 Testing Laboratory Results 12/01/23 03:20 12/01/23 03:20 Urine Color Yellow 12/01/23 03:35 Urine Appearance Clear (Clear) 12/01/23 03:35 Urine pH 5.5 (4.5-7.5) 12/01/23 03:35 Ur Specific [place] 1.022 (1.000-1.030) 12/01/23 03:35 Urine Protein Negative (Negative) 12/01/23 03:35 Urine Glucose (UA) Negative (Negative) 12/01/23 03:35 Urine Ketones Negative (Negative) 12/01/23 03:35 Urine Nitrite Negative (Negative) 12/01/23 03:35 Ur Leukocyte Esterase Negative (Negative) 12/01/23 03:35 12/01/23 12/01/23 12:47 10:36 POC Glucose 102 H 127 H Electrocardiogram Date: 12/01/23 Findings: + SB @ (@ 54)
[2023-12-01] MEDS ORDERED: NALOXONE HCL 0.4 MG/1 ML VIAL/CARP IV PRN (12:54)
[2023-12-01] MEDS ORDERED: fentaNYL citrate PF 100 MCG/2 ML VIAL IV PRN (12:54)
[2023-12-01] MEDS ORDERED: ePHEDrine sulfate 50 MG/ML AMP IV PRN (12:54)
[2023-12-01] MEDS ORDERED: ATROPINE SULFATE 0.1 MG/ML 10ML SYR IV PRN (12:54)
[2023-12-01] MEDS ORDERED: FLUMAZENIL 0.1 MG/1 ML 10 ML VIAL IV PRN (12:54)
[2023-12-01] MEDS ORDERED: PROMETHAZINE HCL 6.25 MG in SODIUM CHLORIDE 0.9% 50 ML IV PRN (12:54)
--- NOTE | 2023-12-01 12:58 | Communication Note ---
Date of Service: December 01, 2023 Pt last had semaglutide injection 11/26/2023
[2023-12-01] MEDS: ceFAZolin 2000MG 2,000 MG/15 ML SYR IV SCH (13:05)
[2023-12-01] MEDS: DIATRIZOATE MEGLUMINE 30% 100ML VIAL INSTIL ONE (13:26)
--- NOTE | 2023-12-01 13:31 | Operative Report ---
PG Post Operative Report Pre & Post Diagnosis Operation Date: 12/01/23 09:50 Preoperative diagnosis: Right ureteral stone Postoperative diagnosis: Right ureteral stone I identified the patient and participated in the time-out.: Yes Procedure Operation Date: 12/01/23 09:50 Cystoscopy, right retrograde pyelogram, right ureteral stent placement Surgeon Solitario Skinner MD [employer] None Estimated Blood Loss 0 Findings Consistent with Post-Op Diagnosis Specimens None Drains 6 [place] by 26 cm double-J ureteral stent in the right ureter Anesthesia Type MAC Complications none Disposition Accompanied Patient To Recovery: Yes Disposition: Recovery Room Indications This is a 68-year-old male recently seen in the emergency department with right- sided flank pain, found to have a right ureteral stone. He is being brought to the OR for a right ureteral stent placement Description of Procedure The patient was identified in the holding area and informed consent was confirmed. He was marked on the right side, then was taken to the operating room where anesthesia was initiated. He was placed in the dorsal lithotomy position with all pressure points appropriately padded. He was prepped and draped in the usual sterile fashion and a preoperative timeout was performed. A well-lubricated cystoscope was inserted per urethra and panendoscopy was performed. There were a couple thin circumferential bands of early stricture formation in the pendulous urethra.. The prostate was mildly enlarged. His bladder appeared grossly normal with no tumors or stones appreciated. Ureteral orifices were in orthotopic position bilaterally. A 5 Brune[place] open-ended catheter was inserted and used to intubate the right ureteral orifice. A retrograde pyelogram was performed using Cystografin. The distal ureter was normal in course and caliber. The proximal ureter was notable for some hydronephrosis. A 0.038 inch zip wire was advanced up to the kidney under fluoroscopic guidance. Over the wire, a 6 Brune[place] x 26 cm double-J ureteral stent was advanced. When the wire was removed, there was a good curl in the kidney under fluoroscopic guidance. A curl was visualized in the bladder with the cystoscope. At this point the bladder was drained and all instrumentation was removed. The patient was then awakened from anesthesia and was brought to the PACU in st able condition. I attest to the content of the Intraoperative Record and any orders documented therein. Any exceptions are noted below.
--- NOTE | 2023-12-01 13:41 | Fluoroscopy Report ---
FL retrograde includes kub CLINICAL HISTORY: RT CYSTO STENTright-sided cystourethrogram COMPARISON STUDY: CT 12/01/2023 FLUOROSCOPY TIME: 12.3 seconds FLUOROSCOPY IMAGES: 1 EXPOSURE DOSE: 3.57 mGy FINDINGS: Proximal portion of a right ureteral stent appears to be in satisfactory positioning. The d istal portion of the stent was not imaged. IMPRESSION: Fluoroscopic assistance as above. ACT 112: Negative or not required by law. Electronically signed by: Avtar Wilkins M.D. 12/01/2023 1:40 PM
--- NOTE | 2023-12-01 14:02 | Anesthesiology Progress Note ---
Date of Service December 01, 2023 Anesthesia Post Procedure Vital Signs Vital Signs: Temp Pulse Pulse Pulse Resp BP BP 12/01/23 13:50 36.4 C L 62 18 132/74 12/01/23 13:40 53 L 12 119/76 12/01/23 13:35 36.0 C L 59 L 10 L 134/71 12/01/23 12:44 36.6 C 52 L 20 131/75 12/01/23 12:00 131/80 12/01/23 12:00 50 L 12 12/01/23 11:18 50 L 15 12/01/23 10:35 136/85 12/01/23 10:06 20 12/01/23 09:15 20 12/01/23 09:00 58 L 20 12/01/23 08:25 50 L 12/01/23 08:00 144/83 H 12/01/23 08:00 51 L 12 12/01/23 07:32 59 L 17 12/01/23 07:30 140/79 12/01/23 07:30 56 L 15 12/01/23 07:00 51 L 15 12/01/23 07:00 131/72 12/01/23 05:00 58 L 7 L 12/01/23 05:00 126/65 12/01/23 04:15 68 22 12/01/23 04:12 60 12/01/23 03:23 12/01/23 03:06 36.6 C 62 20 180/105 H BP Pulse Ox O2 Del Method O2 Flow Rate 12/01/23 13:50 100 Room Air 12/01/23 13:40 100 Oxymask 6 12/01/23 13:35 99 Oxymask 6 12/01/23 12:44 100 Room Air 12/01/23 12:00 12/01/23 12:00 94 12/01/23 11:18 94 12/01/23 10:35 12/01/23 10:06 97 12/01/23 09:15 96 12/01/23 09:00 147/80 H 95 Nasal Cannula 1 12/01/23 08:25 12/01/23 08:00 12/01/23 08:00 93 12/01/23 07:32 140/79 97 Room Air 12/01/23 07:30 12/01/23 07:30 93 12/01/23 07:00 95 12/01/23 07:00 12/01/23 05:00 93 12/01/23 05:00 12/01/23 04:15 95 12/01/23 04:12 12/01/23 03:23 96 Room Air 12/01/23 03:06 99 Room Air Pain Intensity Right Flank: Pain Intensity: 10 Transfer of Care Handoff Completed per policy Notes Mental Status: alert / awake / arousable Patient Amnestic to Procedure: Yes Nausea / Vomiting: adequately controlled Pain: adequately controlled Airway Patency, RR, SpO2: stable & adequate BP & HR: stable & adequate Hydration State: stable & adequate Anesthetic Complications: no major complications apparent
[2023-12-01] MEDS ORDERED: oxyCODONE HCL IR 5 MG TAB (IMMEDIATE RELEASE) PO PRN (16:15)
[2023-12-01] MEDS: fentaNYL citrate PF 100 MCG/2 ML VIAL IV ONE (16:16)
--- NOTE | 2023-12-01 17:20 | Electrocardiogram Report ---
Test Reason : Blood Pressure : / mmHG Vent. Rate : 054 BPM Atrial Rate : 054 BPM P-R Int : 168 ms QRS Dur : 092 ms QT Int : 454 ms P-R-T Axes : 048 040 030 degrees QTc Int : 430 ms Sinus bradycardia Otherwise normal ECG When compared with ECG of 29-DEC-2015 16:19, No significant change was found Confirmed by Mandeep Martines ([id number]) on 12/01/2023 5:20:42 PM Referred By: Keith Carey Confirmed By:Obinna Martines
[2023-12-01] MEDS: PSYLLIUM or GUAR GUM FIBER 4GM PACKET PO SCH (17:21)
[2023-12-01] MEDS: oxyCODONE HCL IR 5 MG TAB (IMMEDIATE RELEASE) PO PRN (18:05)
[2023-12-01] MEDS: ACETAMINOPHEN 325 MG TAB PO PRN (18:11)
[2023-12-01] MEDS: TAMSULOSIN HCL 0.4 MG CAP PO SCH (20:08)
[2023-12-01] MEDS: KETOROLAC TROMETHAMINE 15 MG/ML VIAL IV PRN (20:08)
[2023-12-01] MEDS: PHENAZOPYRIDINE HCL 100 MG TAB PO PRN (22:44)
--- OUTSIDE RECORDS SUMMARY | 2023-12-02 00:53 | External Medical Summary | Summary of Care ---
Author Name Unknown Organization [facility] Address [address] [place] [address] Phone [phone] Care Team Providers Care Bank Runner Name Role Phone Keith Carey MD Primary Care Provider + Reason for Referral * Evaluate & Treat - Unlimited Visits (Within 30 days (routine)) - Pending Review Specialty Diagnoses / Procedures Referred By Laxmi cat Referred To Contact Urology Diagnoses Bilateral renal stones Courtney Abdalla CRNP [address] [place] [address] Referral ID Status Reason Start Date Expiration Date Visits Requested Visits Authorized [id number] Pending Review Specialty Services Required 10/10/[phone] Question Answer Referral Priority Within 30 days (routine) [facility] be scheduled[facility] What is the patient being referred for? Kidney Stone/Calculi Has Imaging been done? Yes * Evaluate & Treat - Unlimited Visits (Within 30 days (routine)) - Pending Review Specialty Diagnoses / Procedures Referred By Laxmi cat Referred To Contact Dietitian / Nutrition Services Diagnoses HTN, goal below 130/80 Courtney Abdalla CRNP [address] [place] [address] Referral ID Status Reason Start Date Expiration Date Visits Requested Visits Authorized [id number] Pending Review Specialty Services Required 10/10/[phone] Question Answer Referral Priority Within 30 days (routine) Where should this appointment be scheduled? [facility] What condition is the patient being seen for? All other conditions Other: Pre-Diabetes/ Hyperinsulemia Is this for 67 Forward? No Comments Medical Nutrition Therapy Reason for Visit * Reason Comments Re-Check 6 MONTH RETURN. WANT S GOUT MED REFILL. PLANTAR WART FREEZE TREATMENT. Encounter Details Date Type Department Care Team (Late st Contact Info) Description 10/10/2023 7:40 AM EDT Office Visit Family [facility] [address] [place] [address] Courtney Abdalla CRNP [address] [place] [id number] Type 2 diabetes mellitus with hemoglobin A1c goal of less than 8.0% ([facility])*; Gouty arthritis of great toe; HTN, goal below 130/80; Plantar wart of left foot; Bilateral renal stones; Renal cyst, left Allergies No known active allergiesdocumented as of this encounter (statuses as of 10/10/2023) Medications Medication Sig Dispensed Refills Start Date End Date Status Betamethasone Dipropionate Aug 0.05 % External Cream (Diprolene AF) Apply topically to affected area 2 times a day. To affected area. ear 15 g 5 06/28/2021 Active Sildenafil Citrate 100 MG Oral Tablet (Viagra)Indication s:Erectile dysfunction due to diseases classified elsewhere 06/22-1/2 tab 1-3 hours before intercourse 30 Tablet 5 06/29/2022 Active Atorvastatin Calcium 20 MG Oral Tablet (Lipitor)Indicatio ns:Type 2 diabetes mellitus with hemoglobin A1c goal of less than 7.0% (HCC) Take 1 Tablet by mouth in the morning. 90 Tablet 3 12/30/2022 Active Additional Information Patient taking differently:20 mg Oral Daily(AM),Currently taking 0.5 a tablet, Reported on 04/07/2023 amLODIPine Besylate 5 MG Oral Tablet (Norvasc) Take 1 Tablet by mouth in the morning. 30 Tablet 5 04/07/2023 Active Additional Information Patient not taking.Reported on 10/10/2023 Ozempic (0.25 or 0.5 MG/DOSE) 2 MG/3ML Solution Pen-injector (Semaglutide(0.25 or 0.5MG/DOS))Indicat ions:Type 2 diabetes mellitus with hemoglobin A1c goal of less than 8.0% ([facility]) Inject 0.5 mg under the skin once a week. 9 mL 1 07/27/2023 Active Lisinopril 10 MG Oral Tablet (Prinivil) Take 1 Tablet by mouth in the morning. 0 Active Colchicine 0.6 MG Oral Tablet 2 tab at start of gout flare, 1 tab 1hour later then stop. 9 Tablet 1 10/10/2023 Active Colchicine 0.6 MG Oral Tablet 2 tab at start of gout flare, 1 tab 1hour later then stop. 9 Tablet 1 06/29/2022 Discontinue d(Refill) documented as of this encounter (statuses as of 10/10/2023) Active Problems Problem Noted Date Diagnosed Date Plantar wart of left foot 10/10/2023 Nephrolithiasis 09/19/2023 Renal cyst, left 09/19/2023 Overview: 09/[address] [facility] [address] 3cm r/o solid w/US Obesity, Class II, BMI 35-39.9, isolated (see ac tual BMI) 06/28/2021 Type 2 diabetes mellitus wit h hemoglobin A1c goal of less than 8.0% 06/28/2021 Gouty arthritis of great toe 10/07/2016 HTN, goal below 130/80 02/14/2016 Overview: Since around 1995 Primary osteoarthritis of knee 02/14/2016 Erectile dysfunction due to diseases classified elsewhere 02/14/2016 BPH with obstruction/lower urinary tract symptom s documented as of this encounter (statuses as of 10/10/2023) Resolved Problems Problem Noted Date Diagnosed Date Resolved Date Elevated hemoglobin 06/05/2019 06/28/19 22 Trauma 05/31/2017 06/28/2021 Skin mass 05/30/2016 12/23/2016 Mass on back 05/30/2016 12/23/2016 Prediabetes 05/14/2016 06/28/2021 Arthritis of knee, right 03/14/201603/2022 Obesity 03/14/2016 06/28/2021 Well adult exam 02/14/2016 10/10/2023 Overview: 09/[address] [facility] [address] 3cm r/o solid w/US 06/06 FOB WNL joaquín 1y 10/03-didn't sched colonoscopy 03/03 DEXA WNL Gluc 107, LDL 116, HDL 39, TG 126 TC 181 01/30 CT sinuses WNL. Left lat semicirc canal vertibule dysplasia ?hearing loss? 2005 stress test WNL [place] Inv T III on EKG documented as of this encounter (statuses as of 10/10/2023) Immunizations Name Administration Dates Next Due COVID-19, mRNA, LNP-s, PF, B ooster, 100mcg/0.5mg (Moderna) 07/02/2021 Covid-19 Ad26, Single Dose (Pablo/J&J) 021 TDAP (age 10 and older)(Boostrix) 06/04/2018 documented as of this encounter Social History Tobacco Use Types Packs/Day Years Used Date Smoking Tobacco: Never Smokeless Tobacco: Never Alcohol Use Standard Drinks/Week Comments Yes 0 (1 standard drink = 0.6 oz pur e alcohol) very rare. PHQ-2 Answer Date Recorded PHQ Adult Total Score 0 12/30/2022 Hunger Vital Sign Answer Date Recorded Within the past 12 months, y ou worried that your food would run out before you got the money to buy more. Never true 12/31/19 23 Within the past 12 months, t he food you bought just didn't last and you didn't have money to get more. Never true 12/30/2022 Sex and Gender Information Value Date Recorded Sex Assigned at Male 06/10/2020 11:46 AM EST Gender Identity Male 06/10/2020 11:46 AM EST Sexual Orientation Straight 06/10/2020 11 :46 AM EST Job Start Date Occupation Industry Not on file Not on file Not on file documented as of this encounter Last Filed Vital Signs Vital Sign Reading Time Taken Comments Blood Pressure 130/78 10/10/2023 7:21 AM EDT Pulse 69 10/10/2023 7:21 AM EDT Temperature - - Respiratory Rate - - Oxygen Saturation - - Inhaled Oxygen Concentration - - Weight 96.2 kg (212 lb 1 oz) 10/10/2023 7:21 AM EDT Height - - Body Mass Index 33.21 07/27/2023 8:23 AM EST documented in this encounter Progress Notes * Courtney AbdallalleTAMELA - 10/10/2023 7:40 AM EDT Images from the original note were not included. Follow up Family Medicine Visit CC: Chief Complaint Patient presents with Re-Check 6 MONTH RETURN. WANTS GOUT MED REFILL. PLANTAR WART FREEZE TREATMENT. History of Present Illness: Bird De Los Santos is a 68 year old male presenting for follow up of left plantar wart Dm-back on ozempic. He has lost approx 50 lbs. Last A1C was 5.8. Last ozempic dose 0.5 mg was on Monday. Denies low blood sugars. Left plantar wart is still present and causes pain. Last gout flare was 3 months ago. He needs refill of colchicine. Also notes that he was seen in ED on 09/14/2023. CT scan showing bilateral renal stones. Incidental note of 3 cm renal cyst. 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 Drug use: No Sexual activity: Yes Partners: Female Comment: 1 son-16 Luke Other Topics Concern Not on file Social History Narrative +coal dust exposure. Likes-biking--has e-bike, dumb bells. Sporting clays, bows. Social Determinants of Health Financial Resource Strain: Not on file Food Insecurity: No Food Insecurity (12/30/2022) Hunger Vital Sign Worried About Running Out of Food in the Last Year: Never true Ran Out of Food in the Last Year: Never true Transportation Needs: Not on file Physical Activity: Not on file Stress: Not on file Social Connections: Not on file Intimate Partner Violence: Not on file Housing Stability: Not on file PMH: Past Medical History: Diagnosis Date Arthritis of knee, right 03/14/2016 BPH with obstruction/lower urinary tract symptoms Erectile dysfunction 02/14/2016 Gout of big toe 10/07/2016 HTN, goal below 130/80 02/14/2016 Since around 1995 Mass on back 05/30/2016 Nephrolithiasis 09/19/2023 Obesity 03/14/2016 Obesity, Class II, BMI 35-39.9, isolated (see actual BMI) 06/28/2021 Prediabetes 05/14/2016 Primary osteoarthritis of knee 02/14/2016 Prostatitis 02/2016 Renal cyst, left 09/19/202309/[address] [facility] [address] 3cm r/o solid w/US Type 2 diabetes mellitus with hemoglobin A1c goal of less than 8.0% ([facility]) 06/28/2021 Past Surgical History: Procedure Laterality Date ACL REHABILITATION EDU Right 1976 meniscus MISCELLANEOUS ORDER ([facility] ONLY) Left summer 2015 Dr Louie MISCELLANEOUS ORDER ([facility] ONLY) nasal blockage from nasal packing REMOVAL OF TONSILS, AGE 12+ Outpatient Medications Marked as Taking for the 10/10/23 encounter (Office Visit) with Courtney Abdalla CRNP Medication Sig Lisinopril 10 MG Oral Tablet (Prinivil) Take 1 Tablet by mouth in the morning. Ozempic (0.25 or 0.5 MG/DOSE) 2 MG/3ML Solution Pen-injector (Semaglutide(0.25 or 0.5MG/DOS)) Inject 0.5 mg under the skin once a week. Atorvastatin Calcium 20 MG Oral Tablet (Lipitor) Take 1 Tablet by mouth in the morning. (Patient taking differently: Take 1 Tablet by mouth in the morning. Currently taking 0.5 a tablet.) Colchicine 0.6 MG Oral Tablet 2 tab at start of gout flare, 1 tab 1hour later then stop. Sildenafil Citrate 100 MG Oral Tablet (Viagra) 06/22-1/2 tab 1-3 hours before intercourse Betamethasone Dipropionate Aug 0.05 % External Cream (Diprolene AF) Apply topically to affected area 2 times a day. To affected area. ear Review of patient's allergies indicates: No Known Allergies Most Recent Immunizations Administered Date(s) Administered COVID-19, mRNA, LNP-s, PF, Booster, 100mcg/0.5mg (Moderna) 07/02/2021 Covid-19 Ad26, Single Dose (Pablo/J&J) 09/28/2020 TDAP (age 10 and older)(Boostrix) 06/04/2018 Review of Systems: Physical Exam: BP 130/78 | Pulse 69 | Wt 96.2 kg (212 lb 1 oz) | BMI 33.21 kg/m | BSA 2.13 m Physical Exam Vitals and nursing note reviewed. HENT: Head: Normocephalic. Eyes: Pupils: Pupils are equal, round, and reactive to light. Cardiovascular: Rate and Rhythm: Normal rate and regular rhythm. Pulmonary: Effort: Pulmonary effort is normal. Breath sounds: Normal breath sounds. Musculoskeletal: General: Normal range of motion. Cervical back: Normal range of motion. Feet: Feet: Comments: RAISED PAPULE Neurological: General: No focal deficit present. Mental Status: He is alert and oriented to person, place, and time. Psychiatric: Mood and Affect: Mood normal. Behavior: Behavior normal. Thought Content: Thought content normal. Judgment: Judgment normal. Assessment and Plan: 1. Type 2 diabetes mellitus with hemoglobin A1c goal of less than 8.0% ([facility]) Last A1C was 5.8 Continue ozempic 2. Gouty arthritis of great toe LAST FLARE was 3 months ago Continue colchicine 3. HTN, goal below 130/80 STABLE 4. Plantar wart of left foot Verbal consent obtained for cryotherapy. Cryotherapy with liquid nitrogen used to treat/destroy benign lesion/wart, a 30 second sustained cycle of freezing was applied. Cool ring obtained. Patient tolerated well. Educated on expected course and side effects/healing. Can use duct tape at home for warts. Apply q hs and remove in the am. 5. Bilateral renal stones Noted on recent CT- 6 mm Urology referral 6. Renal cyst, left Incidental on CT - US RENAL; Future I have advised the patient to call our office incase of any worsening or new symptoms. I spent a total of 20-29 minutes (exact time 25 mins) on the date of service in preparation, delivery, and documentation of the care provided to Bird De Los Santos excluding any time spent in the performance of separately billed services. Sherry, BABS, TAMELA [facility] documented in this encounter Miscellaneous Notes * Addendum Note - Courtnye Abdalla CRNP - 10/10/2023 8:11 AM EDTAddended by: COURTNEY ABDALLA on: 10/10/2023 08:11 AM Modules accepted: Orders, Level of Service documented in this encounter Plan of Treatment Upcoming Encounters Date Type Department Care Team (Late st Contact Info) Description 01/23/2024 8:00 AM EDT Laboratory Laboratory, [facility] [address] [facility] [place] [phone] [facility] [address] [facility] [facility] [place] [address] 01/30/2024 7:00 AM EDT Office Visit [facility] [address] [place] [address] Courtney Abdalla CRNP [address] [place] [address] 08/05/2024 8:20 AM EST Office Visit [facility] [address] [place] [address] Keith Carey MD [address] [place] [address] Scheduled Orders Name Type Priority Associated Diagnoses Orde r Schedule US RENAL Medical Imaging Routine Renal cyst, left Expected: 10/10/2023, Expires: 11/08/2024 Scheduled Referrals Name Type Priority Associated Diagnoses Orde r Schedule NUTRITION-CLINICAL DIETITIAN REFERRAL OP Referral Within 30 days (routine) HTN, goal below 130/80 Ordered: 10/10/2023 ADULT/PEDS UROLOGY REFERRAL OP Referral Within 30 days (routine) Bilateral renal stones Ordered: 10/10/2023 Health Maintenance Due Date Last Done Comments Pneumococcal Vaccine: 65+ Years (1 of 2 - PCV) 09[birth year]27/1961 Diabetic Eye Exam 09/27/1975 Diabetic Foot Exam 09/27/1975 Colonoscopy 2002 Sigmoidoscopy 2002 Zoster Vaccines (1 of 2) 09/27/2007 Fecal Occult Blood Test 05/30/2020 05/30/2019, 09/18 COVID-19 Vaccine (3 - season) 2023 07/02/2021, 09/28/2020 Depression Screening 12/31/2023 12/30/2022 HbA1c 01/20/2024 07/22/2023, 03/19, 11/21/2022, Additional history exists Influenza Vaccine (FLU shot) (Season Ended) 2024 Albumin/Creatinine Ratio 03/31/2024 03/31/2023 GFR 03/31/2024 03/31/2023, 06/0 10/2022, 07/09/2021, Additional history exists Cologuard 07/19/2024 07/19/2021, 06/19, 07/07/2021 Colorectal Cancer Screening 07/19/2024 Lipid Panel 03/31/2028 03/31/2023, 06/0 10/2022, 07/09/2021, Additional history exists DTaP,Tdap,and Td Vaccines (2 - Td or Tdap) 06/04/2028 06/04/2018 GARDASIL-HPV IMMUNIZATION SERIES Aged Out No longer eligible based on patient's age to complete this topic Hepatitis B Aged Out No longer eligi ble based on patient's age to complete this topic MENINGOCOCCAL (MENACTRA/MENVEO) Aged Out No longer eligible based on patient's age to complete this topic documented as of this encounter Medical Devices Not on filedocumented as of this encounter Visit Diagnoses Diagnosis Type 2 diabetes mellitus with hemoglobin A1c goal of less than 8.0% (HCC)- Primary Gouty arthritis of great toe HTN, goal below 130/80 Unspecified essential hypertension Plantar wart of left foot Plantar wart Bilateral renal stones Renal cyst, left Unspecified congenital cystic kidney disease documented in this encounter Care Teams Bank Runner Relationship Specialty Start Date End Date Keith Carey MD [address] [facility] [place] [address] PCP - General Family Medicine 05/09/22 documented as of this encounter"
--- OUTSIDE RECORDS SUMMARY | 2023-12-02 00:53 | External Medical Summary | Summary of Care ---
Author Name Unknown Organization [facility] Address [address] [place] [address] Phone [phone] Care Team Providers Care Cardiology Associate Name Role Phone Keith Carey MD Primary Care Provider + Reason for Visit * Reason Onset Date Comments Referral 10/10/2023 Encounter Details Date Type Department Care Team (Late st Contact Info) Description 10/10/2023 Telephone Urology Jacki Martinez [address] [place] [address] Fatuma Dickens PA-C [address] [place] [address] Referral Allergies No known active allergiesdocumented as of this encounter (statuses as of 10/10/2023) Medications Medication Sig Dispensed Refills Start Date End Date Status Betamethasone Dipropionate Aug 0.05 % External Cream (Diprolene AF) Apply topically to affected area 2 times a day. To affected area. ear 15 g 5 06/28/2021 Active Sildenafil Citrate 100 MG Oral Tablet (Viagra)Indications: Erectile dysfunction due to diseases classified elsewhere 06/22-1/2 tab 1-3 hours before intercourse 30 Tablet 5 06/29/2022 Active Atorvastatin Calcium 20 MG Oral Tablet (Lipitor)Indications :Type 2 diabetes mellitus with hemoglobin A1c goal [...] MG/DOSE) 2 MG/3ML Solution Pen-injector (Semaglutide(0.25 or 0.5MG/DOS))Indicatio ns:Type 2 diabetes mellitus with hemoglobin A1c goal of less than 8.0% ([facility]) Inject 0.5 mg under the skin once a week. 9 mL 1 07/27/2023 Active Lisinopril 10 MG Oral Tablet (Prinivil) Take 1 Tablet by mouth in the morning. 0 Active Colchicine 0.6 MG Oral Tablet 2 tab at start of gout flare, 1 tab 1hour later then stop. 9 Tablet 1 10/10/2023 Active documented as of this encounter (statuses as of 10/10/2023) Active Problems Problem Noted Date Diagnosed Date Plantar wart of left foot 10/10/2023 Nephrolithiasis 09/19/2023 Renal cyst, left 09/19/2023 Overview: 09/[address] [facility] [address] 3cm r/o solid w/US Obesity, Class [...] adult exam 02/14/2016 10/10/2023 Overview: 09/[address] [facility] [address] 3cm r/o solid w/US 06/06 FOB [...] on file documented as of this encounter Miscellaneous Notes * Telephone Encounter - Karen Washington, MED ASSIST - 10/10/2023 2:35 PM EDT Lmom to call back to schedule Urology appt. Pt has a referral. documented in this encounter Plan of Treatment Upcoming Encounters Date Type Department Care Team (Late st Contact Info) Description 10/13/2023 7:15 AM EDT Imaging Radiology [facility] [address] [facility] [place] [address] 12/11/2023 8:00 AM EDT Nutrition Services Nutrition, [facility] [address] [place] [address] Jihan Grissom RDN [address] [place] [address] 01/23/2024 8:00 AM EDT Laboratory Laboratory, [facility] [address] [facility] [place] [phone] [facility] [address] [facility] [place] [address] 01/30/2024 7:00 AM EDT Office Visit [facility] [address] [facility] [place] [address] Courtney Estrada CRNP [address] [place] [address] 02/14/2024 7:20 AM EDT Office Visit [facility] [address] [facility] [place] [address] Courtney Estrada CRNP [address] [place] [address] 08/05/2024 8:20 AM EST Office Visit [facility] [address] [facility] [place] [address] Keith Carey MD [address] [place] [address] Health Maintenance Due Date Last Done Comments Pneumococcal Vaccine: 65+ Years (1 of 2 - PCV) 09[birth year]27/1961 Diabetic Eye Exam 09/27/1975 Diabetic Foot Exam 09/27/1975 Colonoscopy 2002 Sigmoidoscopy 2002 Zoster Vaccines (1 of 2) 09/27/2007 Fecal Occult Blood Test 05/30/2020 05/30/2019, 09/18 COVID-19 Vaccine ( season) 2023 07/02/2021, 09/28/2020 Depression Screening 12/31/2023 [...] Not on filedocumented as of this encounter Care Teams Cardiology Associate Relationship Specialty Start Date End Date Keith Carey MD [address] [place] [address] PCP - General Family Medicine 05/09/22 documented as of this encounter
--- OUTSIDE RECORDS SUMMARY | 2023-12-02 00:53 | External Medical Summary | Summary of Care ---
Author Name Unknown Organization [facility] Address [address] [place] [address] Phone [phone] Care Team Providers Care Astronomy Teacher Name Role Phone Keith Carey MD Primary Care Provider + Encounter Details Date Type Department Care Team (Late st Contact Info) Description 09/14/2023 Result Scan Unspecified Department <No scans attached> Allergies No known active allergiesdocumented as of this encounter (statuses as of 09/19/2023) Medications Medication Sig Dispensed Refills Start Date End Date Status Betamethasone Dipropionate Aug 0.05 % External Cream (Diprolene AF) Apply topically to affected area 2 times a day. To affected area. ear 15 g 5 06/28/2021 Active Sildenafil Citrate 100 MG Oral Tablet (Viagra)Indications: Erectile dysfunction due to diseases classified elsewhere 06/22-1/2 tab 1-3 hours before intercourse 30 Tablet 5 06/29/2022 Active Colchicine 0.6 MG Oral Tablet 2 tab at start of gout flare, 1 tab 1hour later then stop. 9 Tablet 1 06/29/2022 Active Atorvastatin Calcium 20 MG Oral [...] the morning. 30 Tablet 5 04/07/2023 Active Ozempic (0.25 or 0.5 MG/DOSE) 2 MG/3ML Solution Pen-injector (Semaglutide(0.25 or 0.5MG/DOS))Indicatio ns:Type 2 diabetes mellitus with hemoglobin A1c goal of less than 8.0% ([facility]) Inject 0.5 mg under the skin once a week. 9 mL 1 07/27/2023 Active documented as of this encounter (statuses as of 09/19/2023) Active Problems Problem Noted Date Diagnosed Date Obesity, Class II, BMI 35-39.9, isolated (see [...] as of this encounter (statuses as of 09/19/2023) Resolved Problems Problem Noted Date Diagnosed Date Resolved Date Elevated hemoglobin 06/05/2019 06/28/19 22 Trauma 05/31/2017 06/28/2021 Skin mass 05/30/2016 12/23/2016 Mass on back 05/30/2016 12/23/2016 Prediabetes 05/14/2016 06/28/2021 Arthritis of knee, right 03/14/201603/2022 Obesity 03/14/2016 06/28/2021 Well adult exam 02/14/2016 06/28/2021 Overview: 06/06 FOB WNL joaquín 1y 10/03-didn't sched colonoscopy 03/03 DEXA WNL Gluc 107, LDL 116, HDL 39, TG 126 TC 181 01/30 CT sinuses WNL. Left lat semicirc canal vertibule dysplasia ?hearing loss? 2005 stress test WNL [place] Inv T III on EKG documented as of this encounter (statuses as of 09/19/2023) Immunizations Name Administration Dates Next Due COVID-19, [...] on file documented as of this encounter Plan of Treatment Upcoming Encounters Date Type Department Care Team (Late st Contact Info) Description 10/10/2023 7:40 AM EDT Office Visit [facility] [address] [facility] [place] [address] Courtney Estrada CRNP [address] [facility] [place] [address] 01/23/2024 8:00 AM EDT Laboratory Laboratory, [facility] [address] [facility] [place] [phone] Susan Helm [address] [place] [address] 01/30/2024 7:00 AM EDT Office Visit [facility] [address] [place] [address] Courtney Estrada CRNP [address] [place] [address] 08/05/2024 8:20 AM EST Office Visit Family Practice [facility] [address] [place] [address] Keith Carey MD [address] [place] [address] Health Maintenance Due Date Last Done Comments [...] Not on filedocumented as of this encounter Procedures Procedure Name Priority Date/Time Associated Diagnosis Comments RADIOLOGY SCANNED RESULT 09/14/2023 documented in this encounter Results * RADIOLOGY SCANNED RESULT (09/14/2023) 09/14/2023 No Physician Data Unknown [facility] documented in this encounter Care Teams Astronomy Teacher Relationship Specialty Start Date End Date Keith Carey MD [address] [place] [address] PCP - General Family Medicine 05/09/22 documented as of this encounter
--- OUTSIDE RECORDS SUMMARY | 2023-12-02 00:53 | External Medical Summary | Summary of Care ---
Author Name Unknown Organization [facility] Address [address] [place] [address] Phone [phone] Care Team Providers Care Supervisor Histology Name Role Phone Keith Carey MD Primary Care Provider + Reason for Visit * Reason Onset Date Comments Referral 10/10/2023 Encounter Details Date Type Department Care Team (Late st Contact Info) Description 10/10/2023 Telephone Urology Jacki Martinez [address] [place] [address] Fatuma Dickens PA-C [address] [...] hemoglobin A1c goal of less than 8.0% ([facility]) Inject 0.5 mg under the skin once [...] 09/19/2023 Renal cyst, left 09/19/2023 Overview: 09/[address] [facility] [address] 3cm r/o solid w/US Obesity, [...] Well adult exam 02/14/2016 10/10/2023 Overview: 09/[address] [facility] [address] 3cm r/o solid w/US 06/06 [...] encounter Miscellaneous Notes * Telephone Encounter - Sisi Panchal OSA - 10/10/2023 4:15 PM EDT Patient has been notified of the message. Patient has no further questions. * Telephone Encounter - Karen Washington MED ASSIST - 10/10/2023 2:35 PM EDT Lmom to call back to schedule Urology appt. Pt has a referral. documented in this encounter Plan of Treatment Upcoming Encounters Date Type Department Care Team (Late st Contact Info) Description 10/13/2023 7:15 AM EDT Imaging Radiology [facility] [address] [facility] [place] [address] 12/11/2023 8:00 AM EDT Nutrition Services Nutrition, [facility] [address] [facility] [place] [address] Jihan Grissom, [place] 132 [facility] [place] [address] 01/23/2024 8:00 AM EDT Laboratory Laboratory, [facility] [address] [facility] [place] [phone] HelmSusan romo [facility] [address] [facility] [place] [address] 01/30/2024 7:00 AM EDT Office Visit Family [facility] [address] [facility] [place] [address] Courtney Estrada CRNP [address] [place] [address] 02/14/2024 7:20 AM EDT Office Visit [facility] [address] [place] [address] Courtney Estrada CRNP [address] [facility] [place] [address] 04/23/2024 8:45 AM EST Office Visit Urology, [facility] [address] [place] [address] Matthew Thomas MD [address] [place] [address] 08/05/2024 8:20 AM EST Office Visit Family Practice [facility] [address] [place] [address] Keith Carey MD [address] [place] [address] Health Maintenance Due Date Last Done Comments [...] Albumin/Creatinine Ratio 03/31/2024 03/31/2023 GFR 03/31/2024 03/31/2023, 060 10/2022, 07/09/2021, Additional history exists Cologuard 07/19/2024 07/19/2021, 06/19, 07/07/2021 Colorectal Cancer Screening 07/19/2024 Lipid Panel 03/31/2028 03/31/2023, 060 10/2022, 07/09/2021, Additional history exists DTaP,Tdap,and Td [...] filedocumented as of this encounter Care Teams Supervisor Histology Relationship Specialty Start Date End Date Keith Carey MD [address] [facility] [place] [address] PCP - General Family Medicine 05/09/22 documented as of this encounter
--- OUTSIDE RECORDS SUMMARY | 2023-12-02 00:53 | External Medical Summary | Summary of Care ---
Author Name Unknown Organization [facility] Address [address] [place] [address] Phone [phone] Care Team Providers Care Process Consultant Name Role Phone Keith Carey MD Primary Care Provider + Reason for Referral * Evaluate & Treat - Unlimited Visits (Within 30 days (routine)) - Pending Review Specialty Diagnoses / Procedures Referred By Laxmi cat Referred To Contact Urology Diagnoses Bilateral renal stones Courtney Abdalla CRNP [address] [place] [address] Referral ID Status Reason Start Date Expiration Date Visits Requested Visits Authorized [id number] Pending Review Specialty Services Required 10/10/2023 999 [...] below 130/80 Courtney Abdalla CRNP [address] [email or web address] [address] Referral ID Status Reason Start Date Expiration Date Visits Requested Visits Authorized [id number] Pending Review Specialty Services Required 10/10/2023 999 [...] 10/10/2023 7:40 AM EDT Office Visit Family [facility] [address] [place] [address] Courtney Abdalla CRNP [address] [place] [address] Type 2 diabetes mellitus with hemoglobin A1c goal of less than 8.0% ([facility])*; Gouty arthritis of great toe; HTN, goal [...] hemoglobin A1c goal of less than 8.0% ([facility]) Inject 0.5 mg under the skin [...] 09/19/2023 Renal cyst, left 09/19/2023 Overview: 09/[address] [facility] [address] 3cm r/o solid w/US Obesity, [...] Well adult exam 02/14/2016 10/10/2023 Overview: 09/[address] [facility] [address] 3cm r/o solid w/US 06/06 [...] level: Not on file Occupational History 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 [...] of separately billed services. Sherry, BABS, TAMELA [facility] documented in this encounter Miscellaneous Notes * Addendum Note - Courtney Abdalla CRNP - 10/10/2023 8:11 AM EDTAddended by: COURTNEY ABDALLA on: 10/10/2023 08:11 AM Modules accepted: Orders, Level of Service documented in this encounter Plan of Treatment Upcoming Encounters Date Type Department Care Team (Late st Contact Info) Description 01/23/2024 8:00 AM EDT Laboratory Laboratory, [facility] [address] [facility] [place] [phone] [facility] [place] [address] 01/30/2024 7:00 AM EDT Office Visit [facility] [address] [place] [address] Courtney Abdalla CRNP [address] [place] [address] 08/05/2024 8:20 AM EST Office Visit [facility] [address] [place] [address] Keith Carey MD [address] [place] [address] Scheduled Orders Name Type Priority Associated Diagnoses [...] disease documented in this encounter Care Teams Process Consultant Relationship Specialty Start Date End Date Keith Carey MD [address] [facility] [place] [address] PCP - General Family Medicine 05/09/22 documented as of this encounter"
[2023-12-02] MEDS: lisinopril 10 MG TAB PO SCH (08:00)
[2023-12-02] MEDS: ATORVASTATIN 10 MG TAB PO SCH (08:01)
--- NOTE | 2023-12-02 10:08 | Urology Progress Note ---
Date of Service December 02, 2023 Assessment & Plan (1) Ureterolithiasis: (2) Hydronephrosis of right kidney: Plan He is recovering appropriately, s/p ureteral stent placement on 12/01/2023. He will plan to strain his urine and observe for any stone passage. Urology will coordinate outpatient follow-up to assess for stone passage and coordinate next steps if needed. Okay for discharge home from the urology perspective We will sign off for now, please call with any questions or concerns Admission and Anticipated Discharge Date Admission Date: December 01, 2023 Subjective Feeling well this morning Having some pressure from the stent but not much pain Minimal blood in the urine, this seems to have cleared No fevers or chills Physical Exam Physical Exam: Well-appearing, NAD, seated at the bedside Results & Data Vital Signs (Past 12 Hours) Vital Signs Temp Pulse Resp BP Pulse Ox O2 Del Method 12/02/23 07:18 36.4 C L 62 16 120/62 97 Room Air 12/02/23 03:24 36.5 C 68 16 135/78 95 Room Air 12/02/23 00:29 Room Air 12/01/23 22:32 36.6 C 60 18 115/76 98 Room Air PG Care Time/CCT Total # of Minutes Spent Total Time Spent with Patient: Total time spent is greater than 50% in coordination of care (as documented) at patient's floor/unit and/or counseling patient: Coding Level of Care Code 93501 SUB INP/OBS CARE 07/13MIN Diagnoses Ureterolithiasis N20.1 Hydronephrosis of right kidney N13.30
--- NOTE | 2023-12-02 10:16 | Discharge Summary ---
Discharge Summary Date of Service December 02, 2023 Principal Dx & Hospital Course #1 = Principal Diagnosis (1) Ureterolithiasis: (2) Hydronephrosis of right kidney: (3) T2DM (type 2 diabetes mellitus): (4) HTN (hypertension): Plan Patient was admitted to the hospital. Made n.p.o. and given IV fluid resuscitation. His pain was controlled with IV medications. Urology consultation was obtained for obstructing renal calculus. Was evaluated by urology and taken to the operating room. In the operating room cystoscopy was performed and stent placement. His postprocedure course was uneventful. On the morning of discharge his vital signs were stable. His pain was significantly improved. He was given instructions on how to follow-up with urology and how and what to expect with his ureteral stent. And he will be discharged home to follow-up with urology and his PCP. Notes For Next Care Provider Medication Changes From Visit Flomax for to assist with possible stone passage Pyridium for bladder irritability with the stent Admission HPI Per Admitting Provider This is a 68-year-old male who has a significant past medical history of T2DM, HTN and BPH who presents to ED secondary to acute onset right-sided flank pain that started at 1 AM. Pain came on abruptly. It was located in his right flank and right lower back. Symptoms did not radiate to his anterior abdomen. It was associated with nausea. Nothing seem to make the pain better or worse. He denied any associated fever, chills, sweats, vomiting, dysuria, increased urgency with urination or hematuria. He does report increased frequency with urination, but this is chronic for him. His is at bedside who also helps elicit history. He does report that he has an appointment with [facility] urology but is not until April. He reports a history of kidney stones in which he thinks he passed 1 approximately 3 months ago. He had a renal and bladder ultrasound done as outpatient in September which did reveal bilateral nephrolithiasis. He has never required ED evaluation or hospitalization for prior stones. In ED CT abdomen pelvis revealed a 4.5 mm right distal ureter stone with hydroureteronephrosis. His urinalysis was negative for infection. His renal function was stable. He complains of significant pain. Currently he is an 8 out of 10 pain. Discussed with nurse at bedside and pt did become hypoxic after administration of IV dilaudid. Admission Exam Per Admitting Provider See H&P Discharge Exam Constitutional: Alert HEENT: Mucous membranes moist. Lungs: Clear to auscultation, decreased, no wheezes rales or rhonchi CV: S1-S2, regular Abdomen: Soft, nontender, nondistended Extremities: No significant edema Neuro: No focal deficits Psych: Cooperative, normal mood Updated Medication List Medication Instructions Recorded Confirmed Type atorvastatin 20 mg tablet 10 mg PO DAILY 12/01/23 12/01/23 History lisinopril 10 mg tablet 10 mg PO DAILY 12/01/23 12/01/23 History psyllium husk 3.4 gram/5.4 gram 2 tsp PO TID 12/01/23 12/01/23 History oral powder (Metamucil) semaglutide 0.25 mg or 0.5 mg (2 0.5 mg subcut Q7D 12/01/23 12/01/23 History mg/3 mL) subcutaneous pen injector (Ozempic) phenazopyridine 100 mg tablet 100 mg PO TID PRN Bladder pain 12/02/23 Rx (Pyridium) spasms #10 tabs tamsulosin 0.4 mg capsule 0.4 mg PO HS 30 days #30 caps 12/02/23 Rx Hospital Stay Data Consultations 12/01/23 07:57 ED Decision to Admit Stat 12/01/23 08:12 Consult Urology Routine Procedures Performed Operation Date: 12/01/23 09:50 Actual Procedures p Cystoscopy, Right Retrograde Pyelogram, Right Ureteral Stent Insertion(Right) - Solitario Skinner MD Diagnostic Imagining Performed Reviewed imaging, laboratory and diagnostic studies. Pertinent findings as below. Glucose 99 EKG sinus rhythm I refer you to the operative report for details Pending Results Patient Have Any Pending Studies at Discharge: No Discharge Instructions Given to Patient (Per Discharging Provider) Follow-up with urology as instructed Total Time Total Time Spent Total Time Spent (In Minutes): 24
== END 2023-12-02 11:43 | disposition home or self-care (01) | DRG 661 ==
LOC: ED 03:03 → EDINP 08:07 → 3N 15:41